=== PATIENT | male | born 1965 | race Two or more races ===

== ENCOUNTER → 2019-10-04 08:36 | Outpatient (CLI) | payer MEDICAID | END | disposition home or self-care (01) | LOC: D.NM 07-20 09:00 → D.RAD 07-20 09:15 → D.US 07-20 09:30 → D.RAD 09-30 11:00 → D.US 08:00 | PROVIDERS: ATTEND Internal Medicine Gastroenterology | DX: K59.00 Constipation, unspecified (principal); Z48.815 Encounter for surgical aftercare following surgery on the digestive system; K31.89 Other diseases of stomach and duodenum; K29.80 Duodenitis without bleeding; D50.9 Iron deficiency anemia, unspecified; R12 Heartburn; K21.0 Gastro-esophageal reflux disease with esophagitis; Z86.010 Personal history of colon polyps ==

== ENCOUNTER → 2019-11-05 08:08 | Outpatient (CLI) | payer MEDICAID | END | disposition home or self-care (01) | LOC: D.MRI 08:08 | PROVIDERS: ATTEND Family Medicine | DX: M51.36 Other intervertebral disc degeneration, lumbar region (principal) ==

== ENCOUNTER → 2019-12-08 08:30 | Outpatient (CLI) | payer MEDICAID | END | disposition home or self-care (01) | LOC: D.MRI 08:30 | PROVIDERS: ATTEND Nurse Practitioner Family | DX: D37.6 Neoplasm of uncertain behavior of liver, gallbladder and bile ducts (principal) ==